=== PATIENT | female | born 1995 | race Caucasian/White ===

== ENCOUNTER 2018-05-13 01:03 | Inpatient (IN) ==
--- NOTE | 2018-05-13 01:49 | History & Physical Report ---
Date of Service May 13, 2018 Assessment & Plan (1) Uterine contractions at greater than 20 weeks of gestation: Patient with reassuring status, cervix unchanged as compared to office exam, and irregular contractions on monitor that do not appear to cause patient significant distress. No LOF noted at this point. Will monitor, keep chux under patient to look for fluid leakage, and recheck cervix in 1-2 hours. History of Present Illness Chief Complaint: 22yo at 40wk with menstrual type cramps and unsure if she is leaking fluid. +FM no VB. Arrived to L&D wearing leggings without underwear or pad, and leggings dry. PN record reviewed. Primary Care Provider: NO PCP Allergies Allergy/AdvReac Type Severity Reaction Status Date / Time kiwi Allergy Anaphylaxis Verified 04/20/18 10:57 Home Medications Home Medications Medication Instructions Recorded Confirmed Type vit-iron fum-folic ac 1 tab PO DAILY 04/20/18 04/20/18 History [ Vitamin] Past Med/Surg History Medical History Induced termination of Surgical History Hx of tonsillectomy Social History marital status: Single Feels Safe at Home: Yes Safety Concerns: Feels Safe At This Time Hx Alcohol Use: No Hx Substance Use: No Preferred Language: [place] Physical Exam 2 Vital Signs (Past 24 Hours): Last Vital Signs Pulse 76 05/13/18 01:24 Resp 18 05/13/18 01:24 BP 130/80 05/13/18 01:24 Physical Exam: GEN: NAD Lungs: No resp distress Abd: gravid AGA NT Cvx 1.5/80/-2, no LOF even with valsalva. Chux dry. FHT cat 1. [place] irreg.
[2018-05-13] MEDS ORDERED: LACTATED RINGER'S 1,000 ML IV PRN ×3 (03:26→11:32)
[2018-05-13] MEDS ORDERED: OXYTOCIN 30 UNITS/500 ML BAG IV PRN ×2 (03:26→11:32)
[2018-05-13] MEDS ORDERED: LACTATED RINGER'S 1,000 ML IV SCH (03:30)
[2018-05-13 03:46] LABS: Hematocrit (blood only) 36.1 % (37-47); Mean Corpuscular Hgb Conc 33.2 g/dL (32-36); Mean Corpuscular Volume 85.1 fL (80-100); Mean Platelet Volume 10.4 fL (7.4-10.4); Platelet Count 287 K/uL (130-400); RDW Standard Deviation 42.7 fL (36.4-46.3); Red Blood Count 4.24 M/uL (4.2-5.4); White Blood Count 17.39 K/uL (4.8-10.8)
[2018-05-13] MEDS ORDERED: BUPIVACAINE 0.25% 30 ML VIAL ONE (06:17)
[2018-05-13] MEDS ORDERED: ePHEDrine sulfate 50 MG/ML AMP ONE (06:18)
[2018-05-13] MEDS ORDERED: fentaNYL citrate 100 MCG/2 ML VIAL ONE (06:18)
[2018-05-13] MEDS ORDERED: fentaNYL 2MCG/ML ROPIV 1.25MG/ML 100 ML BAG EPI ONE (06:19)
--- NOTE | 2018-05-13 07:19 | Anesthesiology Consultation ---
Date of Service May 13, 2018 Assessment & Plan (1) Encounter for pre-operative examination: Chart Review Chart Review: Acceptable Risk for Labor Epidural History Height/Weight Height: 5 ft 1 in Weight: 75.296 kg Allergies Allergy/AdvReac Type Severity Reaction Status Date / Time kiwi Allergy Anaphylaxis Verified 04/20/18 10:57 Medications Home Medications Medication Instructions Recorded Confirmed Last Taken vit-iron fum-folic ac 1 tab PO DAILY 05/13/18 05/13/18 05/12/18 09:00 [ Vitamin] Active Medications Generic Name Dose Route Start Last Admin Trade Name Freq PRN Reason Stop Dose Admin Lactated Ringer's 1,000 mls @ 999 mls/hr 05/13/18 03:26 05/13/18 06:13 Lr IV 06/12/18 03:25 999 mls/hr .Q1H1M PRN Administration (Pre-Anesthesia) Past Medical History Medical History Anemia Induced termination of Past Surgical History Surgical History Hx of tonsillectomy Social History tobacco type: smokeless tobacco Do You Dip or Chew Tobacco: Yes Hx Alcohol Use: No Hx Substance Use: No substance use type: does not use Physical Exam Vital Signs Last Vital Signs Temp 36.3 C L 05/13/18 04:29 Pulse 106 H 05/13/18 07:16 Resp 18 05/13/18 04:29 BP 126/92 05/13/18 06:54 Pulse Ox 100 05/13/18 07:16 Testing Laboratory Results 05/13/18 03:34
[2018-05-13] MEDS ORDERED: fentaNYL 2MCG/ML ROPIV 1.25MG/ML 100 ML BAG EPI PRN (07:32)
[2018-05-13] MEDS ORDERED: ONDANSETRON INJ 2 MG/ML 2 ML VIAL IV PRN (07:32)
[2018-05-13] MEDS ORDERED: NALOXONE HCL 1 MG in SODIUM CHLORIDE 0.9% 1000ML 1,000 ML IV PRN (07:32)
[2018-05-13] MEDS ORDERED: NALBUPHINE HCL INJ 10 MG/ML AMP IV PRN (07:32)
[2018-05-13] MEDS ORDERED: NALOXONE HCL 0.4 MG/1 ML VIAL/CARP IV PRN (07:32)
[2018-05-13] MEDS ORDERED: DiphenhydrAMINE HCL 50 MG/ML VIAL IV PRN (07:32)
[2018-05-13] MEDS ORDERED: ePHEDrine sulfate 50 MG/ML AMP IV PRN (07:32)
[2018-05-13] MEDS ORDERED: CALCIUM CARBONATE 500 MG CHEWABLE TAB PO PRN (08:42)
--- NOTE | 2018-05-13 11:32 | Labor Progress Brief Note ---
Date of Service May 13, 2018 Subjective Comfortable with epidural. Assessment & Plan (1) Uterine contractions at greater than 20 weeks of gestation: Patient with stalled cervical change, will need to start pitocin. Continue epidural. Physical Exam 2 Vital Signs (Past 24 Hours): Last Vital Signs Temp 36.7 C 05/13/18 10:11 Pulse 98 H 05/13/18 11:26 Resp 18 05/13/18 10:11 BP 122/72 05/13/18 11:21 Pulse Ox 100 05/13/18 11:26 Physical Exam: /-1. FHT 135 mod caleb +acc -dec [place] Q3-5
[2018-05-13] MEDS ORDERED: BENZOCAINE 20% AER SPR 82.5 GM CAN EXT PRN (17:12)
[2018-05-13] MEDS ORDERED: SUPERCREAM 0.870% 15 GM JAR EXT PRN (17:12)
[2018-05-13] MEDS ORDERED: DIPHTHERIA/TETANUS/PERTUSSIS 0.5 ML SYR/VIAL IM ONE (17:12)
[2018-05-13] MEDS ORDERED: HYDROCORTISONE ACETATE 25 MG SUPP PR PRN (17:12)
[2018-05-13] MEDS ORDERED: OXYCODONE/ACETAMINOPHEN 5mg/325mg TAB PO PRN (17:12)
[2018-05-13] MEDS ORDERED: ACETAMINOPHEN 325 MG TAB PO PRN (17:12)
--- NOTE | 2018-05-13 17:14 | Procedure Note ---
Vaginal Delivery Summary Date of Service May 13, 2018 Supervising Physician Co-Signing Physician Notes Patient pushed to deliver a viable infant in OA position. Nuchal x1 reduced at perineum. Shoulders and body delivered without difficulty. Infant placed on maternal abdomen while cord double clamped and cut by FOB. PLacenta S/I/3VC. Repair of 2nd degree perineal lac with 2-0 vicryl in usual manner. Fundus firm and lochia minimal after delivery.
--- NOTE | 2018-05-13 19:09 | Anesthesia Procedure Note ---
Date of Service May 13, 2018 Anesthesia Post Epidural Note Vital Signs Vital Signs: Temp Pulse Resp BP Pulse Ox 05/13/18 18:36 111 H 121/67 05/13/18 18:21 103 H 118/65 05/13/18 18:15 18 05/13/18 18:06 95 H 115/69 05/13/18 17:53 102 H 123/58 L 05/13/18 17:45 18 05/13/18 17:41 91 H 125/75 05/13/18 17:30 18 05/13/18 17:15 18 05/13/18 17:00 18 05/13/18 16:45 18 05/13/18 16:37 91 H 98 05/13/18 16:36 100 H 137/71 05/13/18 16:32 104 H 98 05/13/18 16:27 103 H 77 L 05/13/18 16:26 106 H 93 05/13/18 16:22 109 H 136/79 98 05/13/18 16:21 91 H 89 L 05/13/18 16:17 97 H 100 05/13/18 16:16 99 H 90 05/13/18 16:12 90 99 05/13/18 16:10 114 H 90 05/13/18 16:07 90 99 05/13/18 16:06 101 H 138/86 05/13/18 16:02 96 H 93 05/13/18 15:58 98 H 90 05/13/18 15:57 98 H 95 05/13/18 15:52 101 H 111/70 99 05/13/18 15:51 98 H 94 05/13/18 15:47 90 100 05/13/18 15:44 36.6 C 18 05/13/18 15:42 95 H 100 05/13/18 15:37 99 H 100 05/13/18 15:36 99 H 87 L 05/13/18 15:32 82 100 05/13/18 15:28 96 H 94 05/13/18 15:27 91 H 99 05/13/18 15:22 106 H 100 05/13/18 15:17 109 H 100 05/13/18 15:12 116 H 100 05/13/18 15:07 106 H 100 05/13/18 15:02 98 H 98 05/13/18 14:57 92 H 100 05/13/18 14:52 100 H 100 05/13/18 14:47 98 H 100 05/13/18 14:42 94 H 100 05/13/18 14:37 86 99 05/13/18 14:32 93 H 100 05/13/18 14:27 103 H 100 05/13/18 14:22 97 H 100 05/13/18 14:21 89 122/79 05/13/18 14:17 98 H 100 05/13/18 14:12 91 H 100 05/13/18 14:07 96 H 98 05/13/18 14:06 81 120/81 05/13/18 14:02 99 H 100 05/13/18 13:58 18 05/13/18 13:57 97 H 100 05/13/18 13:52 111 H 100 05/13/18 13:51 85 117/80 05/13/18 13:47 92 H 99 05/13/18 13:42 93 H 98 05/13/18 13:37 94 H 100 05/13/18 13:36 93 H 113/81 05/13/18 13:32 95 H 100 05/13/18 13:27 96 H 100 05/13/18 13:22 85 99 05/13/18 13:21 106 H 109/82 05/13/18 13:17 100 H 100 05/13/18 13:12 92 H 100 05/13/18 13:10 36.6 C 18 05/13/18 13:07 98 H 100 05/13/18 13:06 102 H 123/82 05/13/18 13:02 96 H 100 05/13/18 12:57 86 100 05/13/18 12:52 90 131/73 100 05/13/18 12:47 94 H 100 05/13/18 12:42 92 H 100 05/13/18 12:37 93 H 123/67 100 05/13/18 12:31 93 H 100 05/13/18 12:26 88 100 05/13/18 12:21 86 137/85 100 05/13/18 12:16 86 100 05/13/18 12:11 90 100 05/13/18 12:06 87 128/84 100 05/13/18 12:01 78 100 05/13/18 11:56 88 100 05/13/18 11:52 106 H 125/81 05/13/18 11:51 92 H 98 05/13/18 11:46 88 100 05/13/18 11:41 79 100 05/13/18 11:37 112 H 110/67 05/13/18 11:36 97 H 93 05/13/18 11:31 87 100 05/13/18 11:26 98 H 100 05/13/18 11:21 81 122/72 100 05/13/18 11:16 79 100 05/13/18 11:11 83 99 05/13/18 11:07 81 126/81 05/13/18 11:06 83 100 05/13/18 11:01 67 98 05/13/18 10:56 68 99 05/13/18 10:51 72 111/61 99 05/13/18 10:46 66 98 05/13/18 10:41 75 99 05/13/18 10:36 76 111/61 98 05/13/18 10:31 66 97 05/13/18 10:26 68 98 05/13/18 10:21 73 108/61 100 05/13/18 10:16 64 100 05/13/18 10:11 36.7 C 57 L 18 100 05/13/18 10:07 80 118/78 05/13/18 10:06 93 H 100 05/13/18 10:01 92 H 100 05/13/18 09:56 76 96 05/13/18 09:51 85 113/65 97 05/13/18 09:46 77 97 05/13/18 09:41 84 97 05/13/18 09:36 86 122/68 98 05/13/18 09:31 79 98 05/13/18 09:26 80 99 05/13/18 09:22 88 122/70 05/13/18 09:21 86 100 05/13/18 09:16 87 100 05/13/18 09:11 78 100 05/13/18 09:06 82 120/66 100 05/13/18 09:01 81 100 05/13/18 08:56 83 119/68 05/13/18 08:51 93 H 99 05/13/18 08:46 93 H 100 05/13/18 08:43 100 H 93 05/13/18 08:41 89 100 05/13/18 08:37 101 H 135/98 05/13/18 08:36 88 100 05/13/18 08:35 80 92 05/13/18 08:31 96 H 100 05/13/18 08:29 108 H 90 05/13/18 08:26 91 H 97 05/13/18 08:23 95 H 89 L 05/13/18 08:22 83 134/82 05/13/18 08:21 84 100 05/13/18 08:16 85 99 05/13/18 08:13 86 88 L 05/13/18 08:11 99 H 100 05/13/18 08:07 85 135/87 86 L 05/13/18 08:06 69 100 05/13/18 08:01 91 H 100 05/13/18 07:56 101 H 96 05/13/18 07:53 85 93 05/13/18 07:52 96 H 142/94 H 05/13/18 07:51 80 98 05/13/18 07:46 93 H 100 05/13/18 07:45 88 91 05/13/18 07:41 98 H 100 05/13/18 07:36 89 100 05/13/18 07:34 93 H 130/86 05/13/18 07:32 36.6 C 106 H 139/89 05/13/18 07:31 100 H 100 05/13/18 07:30 100 H 128/88 05/13/18 07:28 113 H 137/88 05/13/18 07:26 95 H 130/95 100 05/13/18 07:24 101 H 125/86 05/13/18 07:22 94 H 129/82 05/13/18 07:21 98 H 100 05/13/18 07:20 85 143/76 H 05/13/18 07:16 106 H 100 05/13/18 07:11 116 H 99 05/13/18 07:06 111 H 99 05/13/18 07:01 94 H 100 05/13/18 06:56 104 H 100 05/13/18 06:54 80 126/92 05/13/18 06:51 108 H 100 05/13/18 06:46 102 H 100 05/13/18 06:41 93 H 100 05/13/18 06:36 96 H 100 05/13/18 06:31 99 H 100 05/13/18 06:26 90 100 05/13/18 04:29 36.3 C L 112 H 18 141/83 H 05/13/18 01:24 76 18 130/80 05/13/18 01:15 76 130/80 Pain Intensity Lower Abdomen: Pain Intensity: 1 Notes Mental Status: alert / awake / arousable and participated in evaluation Nausea / Vomiting: adequately controlled Pain: adequately controlled Airway Patency, RR, SpO2: stable & adequate BP & HR: stable & adequate Hydration State: stable & adequate Neuraxial Anesthesia: was administered and sensory block is resolving Anesthetic Complications: no major complications apparent and Pt Satisfied with anesthetic care Epidural: Removed without complications and With tip intact
[2018-05-13] MEDS: DOCUSATE SODIUM 100 MG CAP PO SCH (21:37)
[2018-05-13] MEDS: IBUPROFEN 600 MG TAB PO PRN (21:37)
[2018-05-14] MEDS: IBUPROFEN 600 MG TAB PO PRN ×3 (06:21→21:19)
--- NOTE | 2018-05-14 06:56 | Obstetrical Progress Note ---
Date of Service <Emil Mcmillan - Last Filed: 05/14/18 06:59> May 14, 2018 Assessment & Plan <Emil Mcmillan DO Tap[place] Last Filed: 05/14/18 06:59> (1) Spontaneous vaginal delivery: 22 y/o, , @ 40 weeks, A-, Ab-, GBS - continue routine post- care ppd #1 (2) 40 weeks gestation of : Day #:: 1 Subjective <Emil Mcmillan DO [place] Last Filed: 05/14/18 06:59> Ambulation: ambulating normally Voiding: no voiding problems Passing Gas:: Yes Diet Tolerance:: regular diet Lochia:: Small Feeding Type:: bottle feeding Current Pain Level(1-10): 3 Paola states she is doing well this morning, she is currently bottle feeding after difficulty with breast feeding. She denies fever, chills, shortness of breath, chest pain, headache, nausea, vomiting. She notes abdominal cramping 3/ 10 that is improved with Motrin. Physical Exam <Emil Mcmillan DO [place] Last Filed: 05/14/18 06:59> Vital Signs (Past 24 Hours) Last Vital Signs Temp 36.7 C 05/14/18 04:20 Pulse 89 05/14/18 04:20 Resp 18 05/14/18 04:20 BP 119/79 05/14/18 04:20 Pulse Ox 99 05/13/18 20:15 Constitutional WD/WN, vitals as above cooperative Respiratory normal respiratory effort, lungs clear to auscultation Cardiovascular RRR, no murmur, no edema Gastrointestinal (Abdomen) fundus is firm, nontender, 3cm below umbilicus Skin no rashes, warm and dry Neurologic moves all extremities and awake Results & Data <Emil Mcmillan DO [place] Last Filed: 05/14/18 06:59> Medications Administered Calcium Carbonate (Tums) 1,500 mg PO Q8H PRN PRN Reason: Indigestion Stop: 06/12/18 08:41 Last Admin: 05/13/18 08:59 Dose: 1,500 mg Docusate Sodium (Colace) 100 mg PO BID LYNSEY Stop: 06/12/18 20:59 Last Admin: 05/13/18 21:37 Dose: 100 mg Lactated Ringer's (Lr) 1,000 mls @ 125 mls/hr IV .Q8H LYNSEY Stop: 05/15/18 03:29 Last Infusion: 05/13/18 19:20 Dose: 0 mls/hr Infusion: 05/13/18 19:19 Dose: Infusion: 05/13/18 16:30 Dose: Admin: 05/13/18 07:28 Dose: 125 mls/hr Ibuprofen (Motrin) 600 mg PO Q4H PRN PRN Reason: Pain/VARGAS/Cramping/Fever Stop: 06/12/18 17:11 Last Admin: 05/14/18 06:21 Dose: 600 mg Admin: 05/13/18 21:37 Dose: 600 mg <Wanda Cruz MD - Last Filed: 05/14/18 07:36> Co-Signing Physician Notes I have examined the patient and agree with the resident note above.
[2018-05-14] MEDS: PRENATAL VITAMIN 1 TAB PO SCH (08:35)
[2018-05-14] MEDS: DOCUSATE SODIUM 100 MG CAP PO SCH ×2 (08:35→20:15)
[2018-05-14] MEDS ORDERED: BISACODYL 5 MG TABEC PO SCH (20:00)
--- NOTE | 2018-05-15 07:05 | Obstetrical Progress Note ---
Date of Service <Emil Mcmillan DO - Last Filed: 05/15/18 07:05> May 15, 2018 Assessment & Plan <Emil Mcmillan DO - Last Filed: 05/15/18 07:05> (1) Spontaneous vaginal delivery: 22 y/o, , @ 40 weeks, A-, Ab-, GBS - continue routine post- care util discharge home today ppd #2 (2) 40 weeks gestation of : Subjective <Emil Mcmillan DO - Last Filed: 05/15/18 07:05> Ambulation: ambulating normally Voiding: no voiding problems Passing Gas:: Yes Diet Tolerance:: regular diet Lochia:: Small Feeding Type:: breast feeding Current Pain Level(1-10): 0 Paola is doing well this morning, no fevers, chills, chest pain, shortness of breath. She states she is ready for discharge home today. Physical Exam <Emil Mcmillan DO - Last Filed: 05/15/18 07:05> Vital Signs (Past 24 Hours) Last Vital Signs Temp 36.5 C 05/14/18 23:45 Pulse 86 05/14/18 23:45 Resp 18 05/14/18 23:45 BP 121/81 05/14/18 20:10 Pulse Ox 99 05/14/18 23:45 Constitutional WD/WN, vitals as above cooperative Respiratory normal respiratory effort, lungs clear to auscultation Cardiovascular RRR, no murmur, no edema Gastrointestinal (Abdomen) Percussion/Palpation: abdomen soft; abdomen nontender Fundus is firm about 4cm inferior to umbilicus, non tender Skin no rashes, warm and dry Neurologic moves all extremities and awake Psychiatric A+Ox3, euthymic affect Results & Data <DO Willie Mohan Last Filed: 05/15/18 07:05> Laboratory Results Laboratory Results - last 24 hr 05/14/18 15:11 Blood Type A Negative Antibody Screen POSITIVE A Antibody Identification Anti-D due to RhIg Screen Negative Medications Administered Acetaminophen (Tylenol) 650 mg PO Q6H PRN PRN Reason: Pain/VARGAS/Fever Stop: 06/12/18 17:11 Last Admin: 05/14/18 15:27 Dose: 650 mg Benzocaine (Dermoplast Pain Relieving [place]) 1 appln EXT PRN PRN PRN Reason: Perineal Discomfort Stop: 06/12/18 17:11 Last Admin: 05/14/18 08:54 Dose: 1 appln Calcium Carbonate (Tums) 1,500 mg PO Q8H PRN PRN Reason: Indigestion Stop: 06/12/18 08:41 Last Admin: 05/13/18 08:59 Dose: 1,500 mg Docusate Sodium (Colace) 100 mg PO BID LYNSEY Stop: 06/12/18 20:59 Last Admin: 05/14/18 20:15 Dose: 100 mg Admin: 05/14/18 08:35 Dose: 100 mg Admin: 05/13/18 21:37 Dose: 100 mg Ibuprofen (Motrin) 600 mg PO Q4H PRN PRN Reason: Pain/VARGAS/Cramping/Fever Stop: 06/12/18 17:11 Last Admin: 05/14/18 21:19 Dose: 600 mg Admin: 05/14/18 12:09 Dose: 600 mg Admin: 05/14/18 06:21 Dose: 600 mg Admin: 05/13/18 21:37 Dose: 600 mg Prenat Multivit/E Business Project Manager/Iron/Folic Ac ( Vitamin) 1 tab PO QAM LYNSEY Stop: 06/13/18 08:59 Last Admin: 05/14/18 08:35 Dose: 1 tab <Go Roman MD, FACOG - Last Filed: 05/15/18 07:53> Co-Signing Physician Notes Resident Physician Supervision Note: I interviewed and examined the patient. Discussed with Dr. Mcmillan and agree with findings and plan as documented in the note. Any exceptions or clarifications are listed here: [None] Documented By: Go Roman MD, FACOG
[2018-05-15 08:26] LABS: Hematocrit (blood only) 33.3 % (37-47); Hemoglobin 11.3 g/dL (12.0-16.0)
[2018-05-15] MEDS: DOCUSATE SODIUM 100 MG CAP PO SCH (08:53)
[2018-05-15] MEDS: PRENATAL VITAMIN 1 TAB PO SCH (08:53)
[2018-05-15] MEDS: IBUPROFEN 600 MG TAB PO PRN (10:47)
[2018-05-15] MEDS ORDERED: BISACODYL 10 MG SUPP PR PRN (17:27)
== END 2018-05-15 13:59 | disposition home or self-care (01) | DRG 807 ==
LOC: OPB 01:03 → 4S1 01:04 → 4S2 19:45